=== PATIENT | male | born 1985 | race Caucasian/White ===

== ENCOUNTER → 2024-06-26 | Outpatient (CLI) | payer OTHER, SELFPAY ==
--- NOTE | 2024-06-26 14:00 | VAS_PTH ---
PATIENT: TAMIKA MOODY [facility] U#:[id number] AGE/SX: 39/M ROOM: RE06/26/[address]: Dr. Pollo Guajardo MD : 1985 BED: DIS: 06/26/2024 SPEC #: [id number] RECD: 06/26/24 14:09 STATUS: DONNA RELakeisha #: [id number] FELECIA: 06/26/24 14:[address]: Pollo Guajardo DEPT: SURGICAL PATHOLOGY RECD BY: Ruma Harris ENTERED: 06/27/24 07:21 SP TYPE: VAS OTHR DR: Out of [facility] Doctor Tissues: A - Vas deferens, NOS B - Vas deferens, NOS Procedures: Surgery Specimen Level II HEADER OPERATION: Vasectomy PRE-OP DIAGNOSIS: Sterilization TISSUE SUBMITTED: A- Left vas deferens, B- Right vas deferens MICROSCOPIC DIAGNOSIS A. Left vas deferens, partial vasectomy: Completely transected segment of vas deferens, no pathologic diagnosis. B. Right vas deferens, partial vasectomy: Completely transected segment of vas deferens, no pathologic diagnosis. ROSEANN: 06/28/2024 MICROSCOPIC DESCRIPTION Slides are reviewed. GROSS DESCRIPTION A - Received is one container designated Left vas deferens. The specimen consists of a tubular segment of figueroa soft tissue measuring 0.8 cm in length and 0.2 cm in diameter. The specimen is sectioned and submitted entirely in one cassette. B - Received is one container designated Right vas deferens. The specimen consists of a tubular segment of figueroa soft tissue measuring 0.5 cm in length and 0.3 cm in diameter. The specimen is sectioned and submitted entirely in one cassette. / ROSEANN: 06/27/2024 TC:4 [facility]: [phone]
== END | disposition home or self-care (01) ==
LOC: LABSPEC 14:07
PROVIDERS: Visit Provider Surgery
DX: Z30.2 Encounter for sterilization (principal)
CPT/HCPCS: 88302

== ENCOUNTER → 2024-07-28 | Outpatient (CLI) | payer OTHER, SELFPAY ==
--- NOTE | 2024-07-28 | FLU_PTH ---
PATIENT: TAMIKA MOODY LOC: [facility] U#:[id number] AGE/SX: 39/M ROOM: RE07/28/[address]: Dr. Pollo Guajardo MD : 1985 BED: DIS: 07/28/2024 SPEC #: [id number] RECD: 07/28/24 10:53 STATUS: DONNA REQ #: [id number] FELECIA: 07/28/24 00:[address]: Pollo Guajardo DEPT: CYTOLOGY RECD BY: Ruma Harris ENTERED: 07/30/24 07:31 SP TYPE: Fluid OTHR DR: Dr. Sally Hammonds, DO Tissues: Cytologic material, NOS Procedures: Special Stain Group II Surgery Specimen Level IV Cytospin Fluid HEADER OPERATION: Post vasectomy PRE-OP DIAGNOSIS: Post vasectomy status TISSUE SUBMITTED: Seminal fluid for cytology DIAGNOSIS CYTOLOGY Seminal fluid for cytology (cytospins): Spermatozoa are present. [email or web address].mr 07/30/2024 COMMENT This case has been reviewed in consultation with Dr. Moore who concurs with the above diagnosis. IDC:PW CYTOLOGY STUDY Slides are reviewed. CYTOLOGY GROSS Received is 1 ml of opaque viscous fluid labeled with the patient's name and and designated per the requisition as Seminal fluid. Submitted for cytology preparation. Mr 07/30/2024 TC:5 CPT: 85825
[2024-07-28 10:53] LABS: Cytology, Semen SEE PATHOLOGY REPORT
== END | disposition home or self-care (01) ==
PROVIDERS: PCP Family Medicine; Referring Provider Surgery; Visit Provider Surgery
DX: Z30.2 Encounter for sterilization (principal)
CPT/HCPCS: 88108; 88305; 88313

== ENCOUNTER → 2024-08-11 | Outpatient (CLI) | payer OTHER, SELFPAY ==
[2024-08-11 08:55] LABS: Cytology, Semen SEE PATHOLOGY REPORT
--- NOTE | 2024-08-11 08:55 | CYSPIN_PTH ---
PATIENT: TAMIKA MOODY LOC: [facility] U#:[id number] AGE/SX: 39/M ROOM: RE08/11/[address]: Dr. Pollo Guajardo MD : 1985 BED: DIS: 08/11/2024 SPEC #: [id number] RECD: 08/13/24 09:45 STATUS: DONNA REQ #: [id number] FELECIA: 08/11/24 08:[address]: Pollo Guajardo DEPT: CYTOLOGY RECD BY: Malissa Sky ENTERED: 08/13/24 09:46 SP TYPE: CYSPIN FL OTHR DR: Dr. Sally Hammonds, DO Tissues: Cytologic material, NOS Procedures: Pap Stain (control) Special Stain Group II Cytospin Fluid HEADER OPERATION: Post vasectomy PRE-OP DIAGNOSIS: Post vasectomy status TISSUE SUBMITTED: Seminal fluid for cytology DIAGNOSIS CYTOLOGY Seminal fluid for cytology (cytospins): Rare spermatozoa are noted. See comment. 08/13/2024 COMMENT Please make reference to previous specimen C25-18 seminal fluid for cytology with diagnosis of spermatozoa are present. CYTOLOGY STUDY Slides are reviewed. CYTOLOGY GROSS Received is 0.5 ml of cloudy fluid labeled with the patient's name and and designated per the requisition as Seminal fluid. Submitted for cytology preparation. Mr 08/13/2024 TC:5 CPT: 37252
== END | disposition home or self-care (01) ==
LOC: LABSPEC 08:53
PROVIDERS: PCP Family Medicine; Referring Provider Surgery; Visit Provider Surgery
DX: Z30.2 Encounter for sterilization (principal)
CPT/HCPCS: 88108; 88313

== ENCOUNTER → 2024-09-08 | Outpatient (CLI) | payer OTHER, SELFPAY ==
--- NOTE | 2024-09-07 22:00 | CYSPIN_PTH ---
PATIENT: TAMIKA MOODY [facility] U#:[id number] AGE/SX: 39/M ROOM: RE09/08/[address]: Dr. Pollo Guajardo MD : 1985 BED: DIS: 09/08/2024 SPEC #: [id number] RECD: 09/10/24 06:33 STATUS: DONNA RELakeisha #: [id number] FELECIA: 09/07/24 22:[address]: Pollo Guajardo DEPT: CYTOLOGY RECD BY: Malissa kSy ENTERED: 09/10/24 06:35 SP TYPE: CYSPIN FL OTHR DR: Dr. Sally Hammonds, DO Tissues: Cytologic material, NOS Procedures: Pap Stain (control) Special Stain Group II Cytospin Fluid HEADER OPERATION: Post vasectomy PRE-OP DIAGNOSIS: Post vasectomy status TISSUE SUBMITTED: Seminal fluid for cytology DIAGNOSIS CYTOLOGY Seminal fluid for cytology (cytospins): Rare spermatozoa are noted. See comment. mr 09/10/2024 COMMENT Please make reference to previous specimens C25-18 seminal fluid for cytology with diagnosis of spermatozoa present and C25-43 seminal fluid for cytology with diagnosis of rare spermatozoa are present. This case has been reviewed in consultation with Dr. Moore who concurs with the above diagnosis. IDC:PW CYTOLOGY STUDY Slides are reviewed. CYTOLOGY GROSS Received is 2 ml of cloudy-figueroa fluid labeled with the patient's name and and designated per the requisition as Seminal fluid. Submitted for cytology preparation. Mr 09/10/2024 TC:5 CPT: 19413
[2024-09-08 10:18] LABS: Cytology, Semen SEE PATHOLOGY REPORT
== END | disposition home or self-care (01) ==
LOC: LABSPEC 10:13
PROVIDERS: PCP Family Medicine; Referring Provider Surgery; Visit Provider Surgery
DX: Z30.2 Encounter for sterilization (principal)
CPT/HCPCS: 88108; 88313

== ENCOUNTER → 2024-12-01 | Outpatient (CLI) | payer OTHER, SELFPAY ==
[2024-12-04 15:06] LABS: Semen Analysis Post Vas PRELIMINARY PRESENT
[2024-12-04 15:09] LABS: Semi Quantitative RARE
== END | disposition home or self-care (01) ==
LOC: LABSPEC 09:55
PROVIDERS: PCP Family Medicine; Referring Provider Surgery; Visit Provider Surgery
DX: Z30.2 Encounter for sterilization (principal)
CPT/HCPCS: 89321